=== PATIENT | female | born 1945 | race Caucasian/White ===

== ENCOUNTER 2016-04-12 06:24 | Observation (INO) | payer MEDICARE ==
[2016-04-12 08:13] LABS: Hematocrit 38 % (35-47); Hemoglobin 12.7 g/dl (12.0-16.0); Mean Corpuscular HGB Conc 34 g/dl (31-36); Mean Corpuscular Hemoglobin 30 pg (27-31); Mean Corpuscular Volume 89 fL (80-97); Mean Platelet Volume 7 um3 (7.4-10.4); Red Blood Count 4.24 10^6/ul (4.0-5.4); Red Cell Distribution Width 13 % (10.5-15); White Blood Count 12.1 10^3/ul (3.5-10.8)
[2016-04-12 08:26] LABS: Albumin 3.8 g/dL (3.2-5.2); C Reactive Protein 31.63 mg/L (< 5.00); Calcium 9.2 mg/dL (8.6-10.3); EGFR African American 80.6 (>60); EGFR Non-African American 62.7 (>60); Globulin 4.1 g/dL (2-4); Magnesium 1.9 mg/dL (1.9-2.7); Potassium 4.2 mmol/L (3.5-5.0); Total Bilirubin 0.6 mg/dL (0.2-1.0); Total Protein 7.9 g/dL (6.4-8.9)
[2016-04-12 10:34] LABS: Budding Yeast Present (Absent); Urine Bacteria Absent (Absent); Urine Bilirubin Negative (Negative); Urine Glucose Negative (Negative); Urine Nitrite Negative (Negative)
[2016-04-12] MEDS ORDERED: Iohexol 300* (CONTRAST) 10 ML SDV IV ONE (10:49)
--- NOTE | 2016-04-12 11:40 | RAD ---
INDICATION: Left lower quadrant abdominal pain. COMPARISON: Comparison is made with a prior CT of the abdomen and pelvis from June 19, 2015 and a study from April 28, 2014. TECHNIQUE: A CT scan of the abdomen and pelvis was performed with intravenous and oral contrast following intravenous injection of 121 ml of Omnipaque 300 nonionic contrast. Contiguous axial sections were obtained from the lung bases through the symphysis pubis. Images were reconstructed in the coronal and sagittal planes. FINDINGS: There is mild dependent bilateral lower lobe subsegmental atelectasis. No pleural effusion is present. The liver is mildly enlarged and unchanged from the prior exam. No significant focal hepatic abnormality is seen. The patient is status post cholecystectomy. The spleen is normal in size. There is focal fatty infiltration in the pancreatic head and neck which is unchanged. The kidneys and adrenal glands are normal in size. No hydronephrosis is seen. There is a 2.5 cm cyst present in the midportion of the right kidney. The aorta is normal in caliber and demonstrates homogeneous contrast opacification. No significant enlarged retroperitoneal lymph nodes are seen. The stomach, small and large bowel appear nondistended. The appendix is within normal limits. There is moderate descending and sigmoid diverticulosis. In addition there is mild thickening of the wall of the proximal sigmoid colon with adjacent stranding in the mesenteric fat. These findings are nonspecific although would be suggestive of diverticulitis. No abscess is seen. The uterus is anteverted and normal in size. There is a soft tissue density mass in the left adnexal region measuring 4.4 x 2.9 cm in size which is unchanged from the prior studies. There is a trace amount of free intraperitoneal fluid in the pelvis. No free intraperitoneal air is seen. No significant focal osseous abnormality is seen. IMPRESSION: 1. MILD THICKENING OF THE WALL OF THE SIGMOID COLON WITH STRANDING IN THE ADJACENT MESENTERIC FAT NONSPECIFIC ALTHOUGH SUSPICIOUS FOR DIVERTICULITIS. WHEN THE PATIENT'S ACUTE PROCESS RESOLVES RECOMMEND A COLONOSCOPY FOR FURTHER EVALUATION. 2. SOFT TISSUE DENSITY MASS IN THE LEFT ADNEXAL REGION UNCHANGED FROM THE PRIOR STUDIES. 3. STATUS POST CHOLECYSTECTOMY.
[2016-04-12] MEDS ORDERED: Ciprofloxacin 400MG IVPREMIX(* 400 MG/200 ML BAG IVPB ONE (11:57)
[2016-04-12] MEDS ORDERED: metroNIDAZOLE IV 500 MG/100ML* 500 MG/100 ML BAG IVPB ONE (11:58)
[2016-04-12] MEDS ORDERED: Ondansetron INJ* 2 MG/ML VIAL IV PRN (12:50)
[2016-04-12] MEDS ORDERED: Acetaminophen TAB* 325 MG PO PRN (12:50)
[2016-04-12] MEDS ORDERED: NS 0.9% 1000 ML* 1,000 ML IV ONE (12:50)
[2016-04-12] MEDS ORDERED: NS 0.9% 1000 ML* 1,000 ML IV SCH (13:00)
[2016-04-12] MEDS: metroNIDAZOLE IV 500 MG/100ML* 500 MG/100 ML BAG IVPB SCH ×2 (14:06→21:28)
[2016-04-12] MEDS: amLODIPine TAB* 5 MG PO SCH (14:14)
[2016-04-12] MEDS: Metoprolol Tartrate TAB* 100 MG TAB PO SCH (14:15)
[2016-04-12] MEDS: Lisinopril TAB* 10 MG PO SCH (14:15)
[2016-04-12] MEDS: Heparin VIAL(*) 5000 UNITS/ML VIAL (FIVE THOUSAND) SUBCUT SCH ×2 (14:22→21:28)
[2016-04-12] MEDS: Ciprofloxacin 400MG IVPREMIX(* 400 MG/200 ML BAG IVPB SCH (15:04)
--- NOTE | 2016-04-12 16:07 | ED ---
Bennie Celis Adam, scribed for Ray Salinas MD on 04/12/16 at 0814 . Abdominal Pain/Female - HPI Summary HPI Summary: A 71 y/o female presents to the ED c/o diffuse lower abdominal pain that started last night around 2100. Currently she has no abdominal pain. However, this morning, patient had an episode of near syncope with diaphoresis, weakness , and lightheadedness. She denies SILVA, nausea, diarrhea, CP, SOB, black or bloody stool, or neurological deficits. Her chronic lower extremity edema is unchanged. Patient has not had anything to eat this morning, and has a hx of diverticulitis. She denies any alcohol, tobacco, or substance use. FHx is negative for cardiac disease. - History of Current Complaint Chief Complaint: EDAbdPain Stated Complaint: DIZZY/WEAK/CLAMMY Time Seen by Provider: 04/12/16 07:32 Hx Obtained From: Patient, Family/Mounter Clarinets - Onset/Duration: Sudden Onset Timing: Intermittent Episode Lasting Severity Initially: Moderate Severity Currently: None Pain Intensity: 0 Pain Scale Used: 0-10 Numeric Location: Diffuse - Lower abdominal Aggravating Factor(s): Movement - Position change Alleviating Factor(s): Position - Supine position Associated Signs and Symptoms: Positive: Diaphoresis, Dizzy, Other: - Weakness. Negative: Blood in Stool, Nausea Allergies/Adverse Reactions: Allergies Allergy/AdvReac Type Severity Reaction Status Date / Time Amoxicillin Allergy Rash Verified 04/12/16 07:28 Penicillins Allergy Rash Verified 04/12/16 07:28 Home Medications: Home Medications amLODIPine TAB* [Norvasc TAB*] 2.5 mg PO DAILY 04/12/16 [History Confirmed 04/12] PMH/Surg Hx/FS Hx/Imm Hx Endocrine/Hematology History: Denies: Hx Diabetes Cardiovascular History: Reports: Hx Hypertension - CONTROL WITH MEDS Denies: Hx Congestive Heart Failure GI History: Reports: Other GI Disorders - Hx diverticulitis History: Denies: Hx Renal Disease Musculoskeletal History: Reports: Hx Arthritis - 2ND TOE ON LEFT FOOT Sensory History: Reports: Hx Contacts or Glasses - GLASSES Denies: Hx Hearing Aid Opthamlomology History: Reports: Hx Contacts or Glasses - GLASSES Neurological History: Denies: Other Neuro Impairments/Disorders - DENIES - Surgical History Surgery Procedure, Year, and Place: 1972 BILATERAL TUBAL LIGATION, [place]. 1989 [place]IL[place] CURETTAGE, [place] Hx Anesthesia Reactions: Yes - D&C - VOMITING Infectious Disease History: No Infectious Disease History: Denies: Traveled Outside the [place] in Last 30 Days - Family History Known Family History: Negative: Cardiac Disease - Social History Alcohol Use: None Hx Substance Use: No Substance Use Type: Reports: None Hx Tobacco Use: No Smoking Status (MU): Never Smoked Tobacco Review of Systems Positive: Skin Diaphoresis Eyes: Negative Negative: Erythema ENT: Negative Negative: Sore Throat Cardiovascular: Negative Negative: Chest Pain Respiratory: Negative Negative: Shortness Of Breath, Cough Positive: Abdominal Pain. Negative: Vomiting, Nausea Genitourinary: Negative Negative: dysuria, hematuria Positive: Edema - chronic - unchanged Skin: Negative Negative: Rash Neurological: Other - Negative: Dizziness Positive: Weakness Psychological: Normal All Other Systems Reviewed And Are Negative: Yes Physical Exam - Summary Physical Exam Summary: Constitutional: Well-developed, Well-nourished, Alert. (-) Distressed Skin: Warm, Dry HENT: Normocephalic; Atraumatic Eyes: Conjunctiva normal Neck: Musculoskeletal ROM normal neck. (-) JVD, (-) Stridor, (-) Tracheal deviation Cardio: Rhythm regular, rate normal, Heart sounds normal; Intact distal pulses; The pedal pulses are 2+ and symmetric. Radial pulses are 2+ and symmetric. (-) Murmur Pulmonary/Chest wall: Effort normal. (-) Respiratory distress, (-) Wheezes, (-) Rales Abd: Soft, Tenderness at LLQ, (-) Distension, (-) Guarding, (-) Rebound Musculoskeletal: (-) Edema Lymph: (-) Cervical adenopathy Neuro: Alert, Oriented x3 Psych: Mood and affect Normal Vital Signs On Initial Exam: Initial Vitals Temp Pulse Resp BP Pulse Ox 97.7 F 70 16 154/64 98 04/12/16 06:52 04/12/16 06:52 04/12/16 06:52 04/12/16 06:52 04/12/16 06:52 Diagnostics - Vital Signs Vital Signs Temp Pulse Resp BP Pulse Ox 04/12/16 06:52 97.7 F 70 16 154/64 98 - Laboratory Result Diagrams: 04/12/16 07:52 04/12/16 07:52 Lab Statement: Any lab studies that have been ordered have been reviewed, and results considered in the medical decision making process. - CT Abdominal/pelvis CT Interpretation: Positive (See Comments) - 1. MILD THICKENING OF THE WALL OF THE SIGMOID COLON WITH STRANDING IN THE ADJACENT MESENTERIC FAT NONSPECIFIC ALTHOUGH SUSPICIOUS FOR DIVERTICULITIS. WHEN THE PATIENT'S ACUTE PROCESS RESOLVES RECOMMEND A COLONOSCOPY FOR FURTHER EVALUATION. 2. SOFT TISSUE DENSITY MASS IN THE LEFT ADNEXAL REGION UNCHANGED FROM THE PRIOR STUDIES. 3. STATUS POST CHOLECYSTECTOMY. CT Interpretation Completed By: Radiologist - EKG 06:45 Cardiac Rate: NL - 70 EKG Rhythm: Sinus Rhythm EKG Interpretation: New T-wave inversion in V2 and V3. No STEMI Re-Evaluation - Re-Evaluation First Eval Re-Evaluation Time: 12:09 Change: Unchanged Comment: Discussed lab and imaging with patient. Abdominal Pain Fem Course/Dx - Diagnoses Provider Diagnoses: Acute diverticulitis, EKG abnormality, Near syncope - Provider Notifications Discussed Care Of Patient With: Dr. Buchanan (Hospitalist, 12:10) - Agrees to see patient. Discharge - Discharge Plan Condition: Guarded Disposition: ADMITTED TO [facility] documentation as recorded by the Bennie nguyen Adam accurately reflects the service I personally performed and the decisions made by , Ray Salinas MD.
--- NOTE | 2016-04-12 17:13 | HP ---
HISTORY AND PHYSICAL: DATE OF ADMISSION: 04/12/16 PRIMARY CARE PROVIDER: [facility] in [place]. ATTENDING PHYSICIAN WHILE IN THE HOSPITAL: Dr. Mary Buchanan* (report being dictated by Zacarias Schmidt NP). CHIEF COMPLAINT: 1. Lightheadedness. 2. Presyncope. 3. Abdominal discomfort. HISTORY OF PRESENTING ILLNESS: Ms. Berumen is a 71-year-old female patient, who has a history of hypertension, obesity, urinary incontinence, and a history of diverticulitis diagnosed about a year ago. She comes in today, states that yesterday she started having lower abdominal discomfort and pain, stating that she was not feeling well and got progressively worse throughout the night, felt better this morning, but when she came to this morning and was getting up to go about her daily business, she started feeling very lightheaded, almost like she was going to faint. She denied sensation of the room spinning. She denied having any chest pain or denied having any shortness of breath or any nausea or vomiting. She says that the symptoms were not getting any better despite her sitting down, so she decided to come into the ER to be evaluated. She denies currently any more dizziness. She says she is still having lower abdominal discomfort, described as a sharp stabbing pain, similar to her previous diverticulitis episodes. She came into the ER, it was found that she had a subtle EKG change, she had inverted T waves now in V3, which was new, they were negative in the past and because of the presyncopal episode and the fact that she had what appeared on CAT scan mild diverticulitis, we were asked to evaluate for admission. PAST MEDICAL HISTORY: Significant for: 1. Hypertension. 2. Obesity. 3. Urinary incontinence. 4. Diverticulitis. PAST SURGICAL HISTORY: She has had a laparoscopic cholecystectomy. MEDICATIONS: Home meds include: 1. Amlodipine 2.5 mg daily. 2. Multivitamin 1 tablet daily. 3. Metoprolol 50 mg at bedtime and 100 mg in the morning. 4. Lisinopril 40 mg daily. ALLERGIES TO MEDICATIONS: Include AMOXICILLIN and PENICILLIN. FAMILY HISTORY: Her father had a history of colon cancer. SOCIAL HISTORY: She does not smoke. She does not drink. She is , with children. Surrogate decision maker is her . REVIEW OF SYSTEMS: There is no documented fever. She denied having any significant weight change. There was no double vision. There is no ear discharge. There is no rhinorrhea. No sore throat. No thyroid enlargement. Denies having any chest discomfort. There is no dyspnea on exertion. No orthopnea, no nocturnal dyspnea. There is abdominal pain per my HPI. There is no nausea, no vomiting. No dysuria, no frequency. No seizure, no loss of consciousness. No pruritus and no skin ulcerations. Review of 14 systems completed, all others negative. PHYSICAL EXAMINATION GENERAL: At this time, Ms. Berumen is a 71-year-old female patient who appears to be well-nourished, well-developed. She does not appear to be in any acute distress. She is sitting in the ER stretcher. VITAL SIGNS: Reveal blood pressure 142/61 with a pulse of 79, respirations 14, O2 sat 96%, temperature 97.7. HEENT: Head is atraumatic and normocephalic. Eyes: EOMs are intact. Sclerae anicteric and not pale. Throat: Oral mucosa appears to be moist. No oropharyngeal erythema. NECK: Supple. LUNGS: Clear to auscultation bilaterally. No wheezes, rales, or rhonchi. HEART: Sounds S1, S2. Regular rate and rhythm. No murmurs, rubs, or gallops. ABDOMEN: Soft, flat. There was tenderness in the left lower and suprapubic area. Bowel sounds were present. EXTREMITIES: Pulses were 2+ throughout. She is able to move all 4 extremities with 5/5 strength. NEUROLOGIC: The patient is awake, she is alert, she is oriented x3. Tongue midline. Abstract Clerk were equal. No gross focal deficits. SKIN: Grossly intact. DIAGNOSTIC STUDIES/LAB DATA: Today revealed WBC of 12.1, RBC of 4.24, hemoglobin 12.7, hematocrit of 38, and platelet count of 274. Sodium 134, potassium 4.2, chloride 99, bicarb 27, BUN 16, creatinine 0.89, glucose 130, lactate 1.1, calcium 9.2, mag 1.9. Total bili 0.6, AST 22, ALT 20, alk phos 59. Troponin 0. Albumin of 3.8. Lipase is 22. Urine showed 3+ leukocyte esterase, 3+ wbc's, present squamous transitional and renal epithelial cells, and present yeast. She did have an abdominal and pelvis CT scan obtained today, which revealed mild thickening of the wall of the sigmoid colon with stranding in the adjacent mesenteric fat, nonspecific, although suspicious for diverticulitis, I recommend a colonoscopy for further evaluation. Soft tissue density mass in the left axillary region, unchanged from prior studies, status post cholecystectomy. She did have an EKG obtained today, which again showed a subtle new T-wave inversion in lead III, she has been negative in the past. She had a rate of 70 , no ST elevations were noted. She had inversion in lead III, which has been there in the past and a rate of 70. Old medical records were reviewed. ASSESSMENT AND PLAN: Ms. Berumen is a 71-year-old female patient coming into the ER today with complaints of abdominal discomfort and an episode of presyncope. She will be admitted under observation status for: 1. Presyncope. I suspect this is probably vasovagal secondary to the pain she was having, but she does have a history of hypertension. I do think she warrants at least telemetry, orthostatics, and an echo. At this point, I will go ahead and repeat troponin. We will get an EKG in the morning. We will continue to monitor her and I am going to hydrate her. 2. Diverticulitis. We will go ahead and put her on Cipro and Flagyl and continue to follow. I will give her a liter of fluids. We will repeat her labs in the morning. 3. Hypertension. Continue meds as prescribed. 4. Obesity. Follow up with primary. 5. History of urinary incontinence. Follow up with primary. 6. History of family colon cancer. Now with an episode of diverticulitis, I did recommend the patient that she needs a colonoscopy. In addition to this, I am going to go ahead and try to get in touch with GI to see if we can get her set up with an outpatient appointment as I do think that she will need a colonoscopy because of a history of colon cancer in the past. In addition to this, also the history of diverticulitis, she needs to have some direct visualization to make sure there is not any suspicious lesion. I did discuss this with the patient the importance and she is in agreement. 7. Fluids, electrolytes, nutrition. She can have a heart-healthy diet. 8. Code status. Full code. TIME SPENT: On the admission was 70 minutes, greater than half the time spent face- to-face with the patient obtaining my history and physical, the other half the time was spent going over the plan of care with the patient and implementing plan of care. I did discuss the plan of care with my attending physician, Dr. Buchanan; she is in agreement. ZACARIAS SCHMIDT NP ADDENDUM TO HISTORY AND PHYSICAL: ADDENDUM: Ms. Berumen is a 71-year-old female who presents with a bout of recurrent diverticulitis. The patient also had an episode of near syncope today. She is going to be observed on telemetry monitored bed. For further details of the patient's evaluation and plan of treatment, please see history and physical dictated by Zacarias Schmidt NP, on 04/12/16, with which I agree. Mary Buchanan MD CC: [facility] in [place]* [id number]/[facility] #: [id number]/CPS #: [id number] MTDTerrell
--- NOTE | 2016-04-12 17:30 | HP ---
HISTORY AND PHYSICAL: ADDENDUM: Ms. Berumen is a 71-year-old female who presents with a bout of recurrent diverticulitis. The patient also had an episode of near syncope today. She is going to be observed on telemetry mo nitored bed. For further details of the patient's evaluation and plan of treatment, please see hist ory and physical dictated by Avinash Christopher NP, on 04/12/16, with which I agree. [id number]/[facility] #: [id number]
[2016-04-12] MEDS ORDERED: Metoprolol Tartrate TAB* 50 mg PO SCH (21:00)
--- NOTE | 2016-04-12 22:26 | CONS ---
CONSULTATION REPORT: DATE OF CONSULT: 04/12/16 REASON FOR CONSULT: Abdominal pain and CT evidence of acute diverticulitis. NARRATIVE: Ms. Berumen is a 71-year-old woman who has a history of hypertension. Additionally about a year ago, she states that she was diagnosed and treated and hospitalized for diverticulitis. On the day of admission, she developed a lower abdominal pain that became progressively worse. She had a near syncopal episode and presented to the emergency room with these symptoms. She had some mild EKG changes and a CT scan of the abdomen was performed which I did review showing relatively mild thickening of the sigmoid colon consistent with diverticulitis. There was no abscess. The patient was admitted and placed on IV antibiotics. Again, she states that about a year ago, she had a similar episode and was on antibiotics. She responded and was instructed to be on a low fiber diet. She has been well in the last year. She has never had a colonoscopy. PAST MEDICAL HISTORY: Her past medical history does include hypertension and a prior history of diverticulitis. Her only surgical history was a cholecystectomy. MEDICATIONS: Her medicines at home were: 1. Amlodipine. 2. Metoprolol. 3. Lisinopril. FAMILY HISTORY: Notable for father who had colon cancer in his 80s. There is no other family history of GI malignancies. REVIEW OF SYSTEMS: She denies any bowel irregularities, GI bleeding. She believes she gets stool Hemoccult performed and has been told they were negative. She has had no dysphagia, nausea, or vomiting. PHYSICAL EXAM: On exam, she is a woman, in no acute distress. She is not pale. Temperature is 98.2, blood pressure is 160/72, heart rate is 75 and regular. Lungs are clear. Cardiac exam reveals a regular rhythm without murmur. Abdomen is without distention and there is perhaps minimal tenderness in the left lower quadrant. There is no mass or rebound. Bowel sounds normoactive. DIAGNOSTIC STUDIES/LAB DATA: Additional data include a white count of 12.1, hemoglobin of 12.7. C-reactive protein of 31.63. Normal liver panel. IMPRESSION: A 71-year-old woman presenting with a clinical presentation most consistent with acute diverticulitis. Imaging supports this and it does seem like that this is her second episode. We discussed treatment including antibiotics and I stressed to her that during treatment, a low-residue diet is recommended, but after treatment, a high-fiber diet may be associated with a reduced recurrence and that was discussed including trying a fiber supplement or increasing fiber in her diet. I also stressed the importance of colonoscopy particularly given her family history of colon cancer. I discussed that procedure with her in great detail including the preparation phase. She was encouraged to contact our office to arrange that at some time in the near future. CC: [facility], [place], [place]* [id number]/[facility] #: [id number] BARI
[2016-04-13] MEDS: Ciprofloxacin 400MG IVPREMIX(* 400 MG/200 ML BAG IVPB SCH (00:45)
[2016-04-13] MEDS: metroNIDAZOLE IV 500 MG/100ML* 500 MG/100 ML BAG IVPB SCH ×2 (04:40→13:35)
[2016-04-13 05:15] LABS: Hematocrit 34 % (35-47); Hemoglobin 11.6 g/dl (12.0-16.0); Mean Corpuscular HGB Conc 34 g/dl (31-36); Mean Corpuscular Hemoglobin 30 pg (27-31); Mean Corpuscular Volume 89 fL (80-97); Mean Platelet Volume 7 um3 (7.4-10.4); Red Blood Count 3.85 10^6/ul (4.0-5.4); Red Cell Distribution Width 13 % (10.5-15); White Blood Count 6.3 10^3/ul (3.5-10.8)
[2016-04-13 05:31] LABS: BUN/Creatinine Ratio 14.6 (8-20); Calcium 8.6 mg/dL (8.6-10.3); EGFR African American 88.6 (>60); EGFR Non-African American 68.9 (>60); Potassium 3.7 mmol/L (3.5-5.0)
[2016-04-13] MEDS: Heparin VIAL(*) 5000 UNITS/ML VIAL (FIVE THOUSAND) SUBCUT SCH (05:55)
[2016-04-13] MEDS: Lisinopril TAB* 10 MG PO SCH (08:58)
[2016-04-13] MEDS: Metoprolol Tartrate TAB* 100 MG TAB PO SCH (08:58)
[2016-04-13] MEDS: amLODIPine TAB* 5 MG PO SCH (08:58)
--- NOTE | 2016-04-13 10:47 | ECHO ---
Patient: SAMANTA ROTH [facility] Rec#: [id number] : 1945 Date: 04/13/2016 Age: 71y Height: 165.1 cm / 65.0 in Weight: 88.9 kg / 195.9 lbs Sex: F BSA: 1.96 Room#: 452 Admit Date#: 04/12/2016 Referring: Avinash Christopher NP Reading: Kyler Lowe MD Shuttle Route Vehicle Operator: Meagan Adams [facility] Transthoracic Echocardiogram Indication: Syncope/Abn EKG BP: 150/75 HR: 76 Rhythm: NSR Findings History: HTN,obesity,subtle EKG changes. Technical Comments: The study quality is good. Completed at 0813. Left Ventricle: Mild to moderate concentric left ventricular hypertrophy is observed. Global left ventricular wall motion and contractility are within normal limits. There is normal left ventricular systolic function. The estimated ejection fraction is 55-60%. Normal left ventricular diastolic filling is observed. Left Atrium: The left atrium is mildly dilated. Right Ventricle: The right ventricular cavity size is normal. The right ventricular global systolic function is normal. Right Atrium: The right atrial cavity size is normal. Aortic Valve: The aortic valve is trileaflet. There is no evidence of aortic regurgitation. There is no evidence of aortic stenosis. Mitral Valve: The mitral valve leaflets are moderately thickened. There is mild to moderate mitral regurgitation. There is no evidence of mitral stenosis. Tricuspid Valve: The tricuspid valve leaflets are normal. There is mild tricuspid regurgitation. The right ventricular systolic pressure is estimated at 51 mmHg. There is evidence of moderate pulmonary hypertension. There is no tricuspid stenosis. Pulmonic Valve: The pulmonic valve appears normal. There is trace to mild pulmonic regurgitation. There is no pulmonic stenosis. Pericardium: There is no pericardial effusion. Aorta: There is no dilatation of the ascending aorta. There is no dilatation of the aortic arch. There is no dilation of the aortic root. Pulmonary Artery: The main pulmonary artery appears normal. Venous: The inferior vena cava appears normal in size. There is a greater than 50% respiratory change in the inferior vena cava dimension. Conclusions Mild to moderate concentric left ventricular hypertrophy is observed. The left atrium is mildly dilated. There is mild to moderate mitral regurgitation. There is mild tricuspid regurgitation. There is evidence of moderate pulmonary hypertension. There is trace to mild pulmonic regurgitation. No reports of prior studies offered for comparison. Measurements Name Value Normal Range RVIDd (AP) 2D 2.8 cm (0.9 - 2.6) RVDdMajor (2D) 3.3 cm (2.2 - 4.4) RAd ISD 4CH 4.3 cm (3.4 - 4.9) RA (A4C)W 3.3 cm (2.9 - 4.6) IVSd (2D) 1.3 cm (0.6 - 1) LVPWd (2D) 1.1 cm (0.6 - 1) LVIDd (2D) 4.3 cm (3.6 - 5.4) LVIDs (2D) 3.1 cm - LV FS (2D) 28 % (25 - 45) Aortic Annulus 1.6 cm (1.4 - 2.6) Ao root diameter (2D) 2.6 cm (2.1 - 3.5) Ascending Ao 3.2 cm (2.1 - 3.4) Aortic arch 2.5 cm (1.8 - 3.4) LA dimension (AP) 2D 4.3 cm (2.3 - 3.8) LAd ISD 4CH 5.5 cm (2.9 - 5.3) LA ISD 4CH W 4.1 cm (2.5 - 4.5) Name Value Normal Range LA ESV SP 4CH (A/L) 68 ml - LA ESV SP 2CH (A/L) 58 ml - LA ESV BP (A/L) 67 ml - LA ESV BP (A/L) index 34.17 ml/m2 - LA ESV SP 4CH (MOD) 64 ml - LA ESV SP 2CH (MOD) 54 ml - Name Value Normal Range MV E-wave Vmax 1.1 m/sec - MV deceleration time 188 msec - MV A-wave Vmax 1 m/sec - MV E:A ratio 1.16 ratio - LV septal e' Vmax 0.09 m/sec - LV lateral e' Vmax 0.07 m/sec - LV E:e' septal ratio 12.22 ratio - LV E:e' lateral ratio 15.71 ratio - Name Value Normal Range AV Vmax 1.9 m/sec - AV VTI 46 cm - AV peak gradient 14.82 mmHg - AV mean gradient 7.93 mmHg - LVOT Vmax 1.2 m/sec - LVOT VTI 28.2 cm - LVOT peak gradient 6.25 mmHg - LVOT mean gradient 2.77 mmHg - Name Value Normal Range TR Vmax 3.5 m/sec - TR peak gradient 48 mmHg - RAP 3 mmHg - RVSP 51 mmHg - IVC diameter 1.7 cm - Name Value Normal Range PV Vmax 0.6 m/sec - PV peak gradient 1.5 mmHg -
--- NOTE | 2016-04-13 13:57 | PN ---
Subjective Date of Service: 04/13/16 Interval History: Patient seen and examined at bedside. Pt denies fever, chills, shortness of breath, chest discomfort, abdominal pain, N/V/D. Pt has been up ambulating and denies lightheadedness or dizziness. Tele: Sinus Rhythm, rate 60-70's. Family History: Unchanged from Admission Social History: Unchanged from Admission Past Medical History: Unchanged from Admission Objective Active Medications: Acetaminophen (Tylenol Tab*) 650 mg PO Q4H PRN Reason: FEVER/PAIN Amlodipine Besylate (Norvasc Tab*) 2.5 mg PO DAILY SHELIA Heparin Sodium (Porcine) (Heparin Vial(*)) 5,000 units SUBCUT Q8HR SHELIA Ciprofloxacin/Dextrose (Cipro 400 Mg Ivpremix(*)) 400 mg in 200 mls @ 200 mls/ hr IVPB Q12H SHELIA Sodium Chloride (Ns 0.9% 1000 Ml*) 1,000 mls @ 100 mls/hr IV PER RATE SHELIA Metronidazole/Sodium Chloride (Flagyl 500 Mg Ivpb*) 500 mg in 100 mls @ 100 mls /hr IVPB Q8H SHELIA Lisinopril (Prinivil Tab*) 40 mg PO QAM SHELIA Metoprolol Tartrate (Lopressor Tab*) 100 mg PO QAM SHELIA Metoprolol Tartrate (Lopressor Tab*) 50 mg PO BEDTIME SHELIA Ondansetron HCl (Zofran Inj*) 4 mg IV Q6H PRN Reason: NAUSEA Vital Signs 04/12/16 04/12/16 04/12/16 15:27 19:43 20:27 Temperature 97.3 F 97.2 F Pulse Rate 70 66 71 Respiratory 20 16 Rate Blood Pressure 157/75 142/65 152/72 (mmHg) O2 Sat by Pulse 99 98 100 Oximetry 04/12/16 04/13/16 04/13/16 20:34 00:00 01:05 Temperature 98.0 F Pulse Rate 72 89 Respiratory 20 Rate Blood Pressure 148/68 138/53 (mmHg) O2 Sat by Pulse 96 96 Oximetry 04/13/16 04/13/16 04/13/16 03:46 07:52 08:59 Temperature 98.0 F 98.3 F Pulse Rate 70 74 Respiratory 20 18 20 Rate Blood Pressure 150/75 152/86 (mmHg) O2 Sat by Pulse 92 98 Oximetry Oxygen Devices in Use Now: None Appearance: NAD, sitting up in bed. Eyes: No Scleral Icterus, PERRLA Ears/Nose/Mouth/Throat: NL Teeth, Lips, Gums, Mucous Membranes Moist Neck: NL Appearance and Movements; NL JVP, Trachea Midline Respiratory: Symmetrical Chest Expansion and Respiratory Effort, Clear to Auscultation Cardiovascular: NL Sounds; No Murmurs; No JVD, RRR Abdominal: NL Sounds; No Tenderness; No Distention - Bowel sounds present. Skin: No Rash or Ulcers Neurological: Alert and Oriented x 3, NL Muscle Strength and Tone Lines/Tubes/Other Access: Clean, Dry and Intact Peripheral IV - site benign. Nutrition: Taking PO's Result Diagrams: 04/13/16 05:07 04/13/16 05:07 Assess/Plan/Problems-Billing Assessment: Ms. Berumen is a 71 yo female with PMH significant for HTN,obesity, urinary incontinence who presented to the emergency room with complaints of abdominal pain and an episode of presyncope. - Patient Problems (1) Pre-syncope Comment: No further episodes of lightheadedness. Pt states that she has been able to ambulate around without diffiuclty. No arrythmias noted on tele. She is not orthostatic. Echo shows mild to moderate concentric left ventricular hypertrophy, and moderate pulmonary HTN. (2) Diverticulitis Comment: ABD pain has resolved. Will continue Pt on Cipro and Flagyl. Pt encouraged to be on a low residue diet and advance to a high fiber diet once she has completed treatment. Pt should also have a colonoscopy outpatient. (3) HTN (hypertension) Code(s): I10 - ESSENTIAL (PRIMARY) HYPERTENSION SNOMED Code(s): 72565961 Comment: BP controlled. Continue home medications. (4) DVT prophylaxis Code(s): JMP1225 - SNOMED Code(s): 901039466 (5) Full code status Code(s): Z78.9 - OTHER SPECIFIED HEALTH STATUS SNOMED Code(s): 642519114 Status and Disposition: OBV. Stable for discharge to home today.
[2016-04-13 14:15] VITALS: BP 143/67
--- NOTE | 2016-04-14 17:52 | DS ---
DISCHARGE SUMMARY: DATE OF ADMISSION: 04/12/16 DATE OF DISCHARGE: 04/13/16 ATTENDING PHYSICIAN: Dr. Heena Spring *(dictated by Sharon Page NP). PRIMARY CARE PROVIDER: [facility] in [place]. PRIMARY DIAGNOSES: 1. Presyncope, suspect secondary to vasovagal. 2. Diverticulitis. SECONDARY DIAGNOSES: 1. Hypertension. 2. Obesity. 3. Family history of colon cancer. CONSULTATIONS WHILE IN THE HOSPITAL: Dr. Gibran Beth, Gastroenterology. STUDIES WHILE IN THE HOSPITAL: 1. Abdomen and pelvis CT on 04/12/16. Radiologist's impression: Mild thickening of the wall of the sigmoid colon with stranding in the adjacent mesenteric fat, nonspecific, although suspicious for diverticulitis. When the patient's acute process resolves, recommend a colonoscopy for further evaluation. Soft tissue density mass in the left adrenal region, unchanged from the prior studies, status post cholecystectomy. 2. Transthoracic echocardiogram from 04/13/16. Cupola Patcher Helper's impression: Mild- to-moderate concentric left ventricular hypertrophy is observed. The left atrium is mildly dilated. There is [id number] mitral regurgitation, mild tricuspid regurgitation, moderate pulmonary hypertension, [id number] pulmonic regurgitation. There are no reports of prior studies offered for comparison. DISCHARGE MEDICATIONS: New home medications: 1. Ciprofloxacin 500 mg oral twice daily for 10 days. 2. Metronidazole 500 mg oral 3 times daily. Continued home medications: 1. Metoprolol 100 mg oral every morning. 2. Lisinopril 40 mg oral daily. 3. Metoprolol tartrate 50 mg oral daily at bedtime. 4. Multivitamin 1 capsule oral daily. 5. Amlodipine 2.5 mg oral daily. HISTORY OF PRESENT ILLNESS/HOSPITAL COURSE: Ms. Berumen is a 71-year-old female with past medical history significant for hypertension, obesity and diverticulitis, who presents to the emergency room with complaints of lower abdominal discomfort and not feeling well and what the patient described as a presyncopal episode. The patient denied any shortness of breath, chest pain, nausea, vomiting. The patient also denied any sensations of room spinning. Based on these concerns, the patient presented to the emergency room for further evaluations of her symptoms. While in the emergency room, the patient was found to have subtle EKG changes and had an inverted T-wave in leads V3 that were new and had been negative in the past. The patient also had an abdominal CAT scan due to her complaint of abdominal pain that found finding suspicious for diverticulitis. The patient also had labs that were significant for slightly elevated white count of 12.1. The patient was seen in evaluation by the hospitalist for admission. While in the hospital, the patient was seen in consultation by Dr. Gibran Beth with Gastroenterology, who felt that the patient was most likely having an acute diverticulitis and that this appeared to be her second episode. She was started on Cipro and Flagyl IV. It was discussed with the patient the antibiotics that she should be on and the patient was encouraged to be on a low- residue diet. During treatment and after treatment, she should be on a high- fiber diet, as this has been shown to reduce recurrence of diverticulitis. The patient was also encouraged to get a colonoscopy due to her family history of colon cancer and to further evaluate her for diverticulitis. The patient was encouraged to contact [facility] to arrange for a colonoscopy in the future. During the patient's hospital stay, she had no further syncopal episodes. She had a transthoracic echocardiogram with no significant findings except for a moderate pulmonary hypertension. She was able to ambulate with no dizziness. The patient's abdominal pain resolved. The patient was doing well and tolerating a low-fat diet. Ms. Berumen is stable for discharge to home today. Vital signs are as follows: Temperature 97.6, heart rate 62, respiratory rate 16, O2 sat 99% on room air, blood pressure 143/67. DISCHARGE PLAN: Ms. Berumen will be discharged to home. Activity is as tolerated. She should be on a low-residue diet during her treatment and advance to a high- fiber diet after her treatment. The patient as far as her diverticulitis has been started on Cipro 500 mg oral twice daily and Flagyl 500 mg oral 3 times daily. The patient has been encouraged to follow up with Gastroenterology for a followup colonoscopy not only to evaluate for her diverticulitis, but also due to her family history of colon cancer. It is to note that on the patient's echocardiogram, she was found to have moderate pulmonary hypertension and this should be followed and have further workup as needed in the outpatient setting. The patient has an appointment with [facility] on April 17 at 2:15 p.m. The patient's activity is as tolerated. She has been encouraged not to drink alcohol while taking metronidazole. The patient should return to the emergency room for shortness of breath, chest discomfort, or increasing abdominal pain. This is a summarized report of a complex medical history and hospital stay. For further details, please see the entire medical record. Time for this discharge was 50 minutes, 25 minutes were spent [id number] with the patient and , discussing discharge plans and instructions. CONDITION ON DISCHARGE: Stable. Reviewed by ISREAL MONAE 04/21/16 1434 CC: [facility]* [id number]/CPS #: [id number] BARI
== END 2016-04-13 15:35 | disposition home or self-care (01) ==
LOC: ED 06:24 → MEDTELE 12:44
PROVIDERS: ADMIT Internal Medicine; ATTEND Hospitalist
DX: R55 Syncope and collapse (principal); K57.32 Diverticulitis of large intestine without perforation or abscess without bleeding; R10.30 Lower abdominal pain, unspecified; R42 Dizziness and giddiness; I10 Essential (primary) hypertension; E66.9 Obesity, unspecified; R32 Unspecified urinary incontinence; Z79.899 Other long term (current) drug therapy; Z88.0 Allergy status to penicillin
CPT/HCPCS: 36415; 74177; 80048; 80053; 81003; 81015; 83605; 83690; 83735; 84484; 85025; 85610; 86140; 87077; 87086; 93005; 93306; 96365; 96366; 96367; 99283; A9270-GY; G0378; J0744; J1644; J3490; Q9967

== ENCOUNTER 2017-09-02 22:08 | Emergency (ER) | payer MEDICARE ==
[2017-09-02] MEDS ORDERED: Morphine VIAL* 4 MG/ML VIAL (1 ml vial) IV ONE (22:51)
[2017-09-02] MEDS ORDERED: Ondansetron ODT TAB* 4 MG SL ONE (22:52)
[2017-09-03 01:11] VITALS: BP 157/77
--- NOTE | 2017-09-03 03:05 | ED ---
Liliana Celis Julia, scribed for Miladys Castle MD on 09/02/17 at 2252 . Upper Extremity Pain - HPI Summary HPI Summary: This patient is a 72 year old F BIBA to [facility] accompanied by her with a chief complaint of R shoulder pain at 13:00 today. She denies injury to the shoulder. Pain is 10/10 in severity. Pain is aggravated by movement. No other complaints. - History of Current Complaint Chief Complaint: EDShoulderClavicleInj Stated Complaint: RIGHT SHOULDER PAIN Time Seen by Provider: 09/02/17 22:28 Hx Obtained From: Patient Mechanism Of Injury: Other - none Onset/Duration: Started Hours Ago Pain Location: Shoulder - right Aggravating Factor(s): Movement Alleviating Factor(s): Nothing Associated Signs & Symptoms: Positive: Negative - Allergies/Home Medications Allergies/Adverse Reactions: Allergies Allergy/AdvReac Type Severity Reaction Status Date / Time amoxicillin Allergy Rash Verified 09/02/17 23:00 Penicillins Allergy Rash Verified 09/02/17 23:00 Home Medications: Home Medications Atorvastatin* [Lipitor 40 MG*] 40 mg PO DAILY 09/02/17 [History Confirmed ] PMH/Surg Hx/FS Hx/Imm Hx Endocrine/Hematology History: Denies: Hx Diabetes Cardiovascular History: Reports: Hx Hypertension - CONTROL WITH MEDS Denies: Hx Congestive Heart Failure GI History: Reports: Other GI Disorders - Hx diverticulitis History: Denies: Hx Renal Disease Musculoskeletal History: Reports: Hx Arthritis - 2ND TOE ON LEFT FOOT Sensory History: Reports: Hx Contacts or Glasses - GLASSES Denies: Hx Hearing Aid Opthamlomology History: Reports: Hx Contacts or Glasses - GLASSES Neurological History: Denies: Other Neuro Impairments/Disorders - DENIES - Surgical History Surgery Procedure, Year, and Place: 1972 BILATERAL TUBAL LIGATION, [place]. 1989 [place]IL[place] AND [place]TTAGE, [place] Hx Anesthesia Reactions: Yes - D&C - VOMITING - Immunization History Date of Tetanus Vaccine: unable to recall Date of Influenza Vaccine: pt declines Infectious Disease History: No Infectious Disease History: Denies: Traveled Outside the [place] in Last 30 Days - Family History Known Family History: Negative: Cardiac Disease - Social History Alcohol Use: None Hx Substance Use: No Substance Use Type: Reports: None Hx Tobacco Use: No Smoking Status (MU): Never Smoked Tobacco Review of Systems Constitutional: Negative Positive: Arthralgia - R shoulder pain All Other Systems Reviewed And Are Negative: Yes Physical Exam - Summary Physical Exam Summary: VITAL SIGNS: Reviewed. GENERAL: Patient is a well-developed and nourished female who is lying comfortable in the stretcher. Patient is not in any acute respiratory distress. HEAD AND FACE: No signs of trauma. No ecchymosis, hematomas or skull depressions. No sinus tenderness. EYES: PERRLA, EOMI x 2, No injected conjunctiva, no nystagmus. EARS: Hearing grossly intact. Ear canals and tympanic membranes are within normal limits. MOUTH: Oropharynx within normal limits. NECK: Supple, trachea is midline, no adenopathy, no JVD, no carotid bruit, no c- spine tenderness, neck with full ROM. CHEST: Symmetric, no tenderness at palpation LUNGS: Clear to auscultation bilaterally. No wheezing or crackles. CVS: Regular rate and rhythm, S1 and S2 present, no murmurs or gallops appreciated. ABDOMEN: Soft, non-tender. No signs of distention. No rebound no guarding, and no masses palpated. Bowel sounds are normal. EXTREMITIES: no edema, no cyanosis or clubbing. Tenderness of R shoulder with decreased ROM due to pain, R arm is neurovascularly intact NEURO: Alert and oriented x 3. No acute neurological deficits. Speech is normal and follows commands. SKIN: Dry and warm Triage Information Reviewed: Yes Vital Signs On Initial Exam: Initial Vitals Temp Pulse Resp BP Pulse Ox 97.4 F 70 20 180/65 97 09/02/17 22:10 09/02/17 22:10 09/02/17 22:10 09/02/17 22:10 09/02/17 22:10 Vital Signs Reviewed: Yes Diagnostics - Vital Signs Vital Signs Temp Pulse Resp BP Pulse Ox 09/02/17 22:10 97.4 F 70 20 180/65 97 - Laboratory Lab Statement: Any lab studies that have been ordered have been reviewed, and results considered in the medical decision making process. - Radiology R Shoulder XR Radiology Interpretation Completed By: Radiologist - RADHA separation - EKG 2223 Cardiac Rate: NL EKG Rhythm: Sinus Rhythm - 70 BPM EKG Interpretation: Normal axis. Normal interval. No ischemic changes Course/Dx - Course Course Of Treatment: 72 year old F BIBA to [facility] accompanied by her with a chief complaint of R shoulder pain at 13:00 today. She denies injury to the shoulder. Pain is 10/10 in severity. Pain is aggravated by movement. No other complaints at this time. EKG is negative. CXR reveals a R AC separation. Patient is informed of results. Patient will be dsicharged with a prescription for Percocet and will follow up with orthopedics. Patient is agreeable with this plan. - Diagnoses Provider Diagnoses: AC separation Discharge - Sign-Out/Discharge Documenting (check all that apply): Discharge/Admit/Transfer - Discharge Plan Condition: Stable Disposition: HOME Prescriptions: oxyCODONE/Acetamin 5/325 MG* [Percocet 5/325 TAB*] 1 tab PO Q6H PRN #14 tab MDD 4 PRN Reason: Pain Patient Education Materials: Acromioclavicular Separation (ED) Referrals: ANNA Gómez [Primary Care Provider] - Arnie Veloz MD [Medical Doctor] - 1 Day (Follow up with orthopedics tomorrow, 09/04/17) Additional Instructions: RETURN TO EMERGENCY DEPARTMENT FOR ANY NEW OR WORSENING SYMPTOMS The documentation as recorded by the Liliana nguyen Julia accurately reflects the service I personally performed and the decisions made by me, Miladys Castle MD.
--- NOTE | 2017-09-03 07:51 | RAD ---
HISTORY: Right shoulder pain COMPARISONS: None VIEWS: 5, Frontal internal rotation, external rotation, outlet, and axillary views of the right shoulder FINDINGS: BONE DENSITY: Normal. BONES: There is no displaced fracture. JOINTS: There is osteoarthritis of the AC joint. There is mild osteoarthritis of the glenohumeral joint. ALIGNMENT: There is no dislocation. The acromioclavicular and coracoclavicular intervals are within normal limits. SOFT TISSUES: Unremarkable. OTHER FINDINGS: None. IMPRESSION: OSTEOARTHRITIS. NO ACUTE OSSEOUS INJURY. IF SYMPTOMS PERSIST, RECOMMEND REPEAT IMAGING.
== END 2017-09-03 01:09 | disposition home or self-care (01) ==
LOC: ED 22:08
DX: S43.101A Unspecified dislocation of right acromioclavicular joint, initial encounter (principal); X58.XXXA Exposure to other specified factors, initial encounter; Y93.9 Activity, unspecified; Y92.9 Unspecified place or not applicable; M19.011 Primary osteoarthritis, right shoulder; I10 Essential (primary) hypertension; K57.92 Diverticulitis of intestine, part unspecified, without perforation or abscess without bleeding; M19.072 Primary osteoarthritis, left ankle and foot; Z88.0 Allergy status to penicillin
CPT/HCPCS: 93005; 96374; 99283; A9270-GY; J2270

== ENCOUNTER 2018-10-07 03:26 | Emergency (ER) | payer MEDICARE ==
--- NOTE | 2018-10-07 04:10 | ED ---
Syncope/Near Syncope - HPI Summary HPI Summary: This patient is a 73 year old F BIBA with a chief complaint of syncope at 0230 this morning. Patient woke up with leg cramps and sat on the edge of the bed. She felt dizzy. She then experienced a syncopal episode, of which she has no memory. found her on the floor and reports she was cold and clammy, breathing rapidly. She has had 4 syncopal episodes before. The patient rates the pain 0/10 in severity. Symptoms aggravated by nothing. Symptoms alleviated by nothing. Patient reports nausea. Patient denies palpitations, CP, abdominal pain, weakness, numbness. - History Of Current Complaint Chief Complaint: EDSyncope Time Seen by Provider: 10/07/18 03:57 Hx Obtained From: Patient, Family/Ruching Machine Operator - Onset/Duration: Sudden Onset, Resolved Context: Unwitnessed, Loss Of Consciousness Activity At Onset: Other - Sat up from supine position Aggravating Factor(s): Nothing Alleviating Factor(s): Nothing Associated Signs And Symptoms: Negative - palpitations, CP, abdominal pain, weakness, numbness, Other - Nausea Related History: Similar Episode/Dx as - 4x syncopal episodes - Allergies/Home Medications Allergies/Adverse Reactions: Allergies Allergy/AdvReac Type Severity Reaction Status Date / Time amoxicillin Allergy Rash Verified 10/07/18 03:40 Penicillins Allergy Rash Verified 10/07/18 03:40 PMH/Surg Hx/FS Hx/Imm Hx Endocrine/Hematology History: Denies: Hx Diabetes Cardiovascular History: Reports: Hx Hypertension - CONTROL WITH MEDS Denies: Hx Congestive Heart Failure GI History: Reports: Other GI Disorders - Hx diverticulitis History: Denies: Hx Renal Disease Musculoskeletal History: Reports: Hx Arthritis - 2ND TOE ON LEFT FOOT Sensory History: Reports: Hx Contacts or Glasses - GLASSES Denies: Hx Hearing Aid Opthamlomology History: Reports: Hx Contacts or Glasses - GLASSES Neurological History: Reports: Other Neuro Impairments/Disorders - 4x syncopal episodes before - Surgical History Surgery Procedure, Year, and Place: 1972 BILATERAL TUBAL LIGATION, [place]. 1989 [place] AND [place]URE[place]AGE, [place] Hx Anesthesia Reactions: Yes - D&C - VOMITING - Immunization History Date of Tetanus Vaccine: unable to recall Date of Influenza Vaccine: pt declines Infectious Disease History: No Infectious Disease History: Denies: Traveled Outside the [place] in Last 30 Days - Family History Known Family History: Negative: Cardiac Disease - Social History Alcohol Use: None Hx Substance Use: No Substance Use Type: Reports: None Hx Tobacco Use: No Smoking Status (MU): Never Smoked Tobacco Review of Systems Negative: Palpitations, Chest Pain Positive: Nausea Neurological: Other - Dizziness Negative: Weakness, Numbness All Other Systems Reviewed And Are Negative: Yes Physical Exam - Summary Physical Exam Summary: Appearance: Well appearing, no pain distress Skin: warm, dry, reflects adequate perfusion Head/face: normal Eyes: EOMI, NORRIS ENT: normal Neck: supple, non-tender Respiratory: CTA, breath sounds present Cardiovascular: RRR, pulses symmetrical Abdomen: non-tender, soft Musculoskeletal: normal, strength/ROM intact Neuro: normal, sensory motor intact, A&Ox3 GCS: 15 Triage Information Reviewed: Yes Vital Signs On Initial Exam: Initial Vitals Temp Pulse Resp BP Pulse Ox 96.8 F 70 18 144/70 98 10/07/18 03:30 10/07/18 03:30 10/07/18 03:30 10/07/18 03:30 10/07/18 03:30 Vital Signs Reviewed: Yes Diagnostics - Vital Signs Vital Signs Temp Pulse Resp BP Pulse Ox 10/07/18 03:30 96.8 F 70 18 144/70 98 - Laboratory Result Diagrams: 10/07/18 04:31 10/07/18 04:31 Lab Statement: Any lab studies that have been ordered have been reviewed, and results considered in the medical decision making process. - Radiology CXR Radiology Interpretation Completed By: ED Physician Summary of Radiographic Findings: No acute processes, pending official radiology report. - CT Brain CT Interpretation Completed By: Radiologist Summary of CT Findings: No acute intracranial abnormality. Dr. Russell has reviewed this radiology report. - EKG 0452 Cardiac Rate: NL - 65 BPM EKG Rhythm: Sinus Rhythm ST Segment: Normal Ectopy: None Summary of EKG Findings: NSR at 65 BPM, no acute changes. Re-Evaluation - Re-Evaluation First Eval Re-Evaluation Time: 05:34 Change: Improved Comment: Discussed results with patients. Patient reports feeling better. She will be discharged home with dx of syncope to be watched by her since she does not want to be admitted for observation. Patient understands and agrees with this plan. Course/Dx Course Of Treatment: This patient is a 73 year old F BIBA with a chief complaint of syncope at 0230 this morning. Blood work obtained. EKG revealed NSR at 65 BPM, no acute changes. CXR revealed no acute processes, pending official radiology report. Brain CT revealed no acute intracranial abnormalities. In the ED patient reports feeling better. She will be discharged home with dx of syncope to be watched by her since she does not want to be admitted for observation. Patient understands and agrees with this plan. - Diagnoses Provider Diagnoses: Syncope Discharge - Sign-Out/Discharge Documenting (check all that apply): Patient Departure - Discharge Patient Received Moderate/Deep Sedation with Procedure: No - Discharge Plan Condition: Stable Disposition: HOME Patient Education Materials: Syncope (ED) Referrals: Ruben Laird PA [Primary Care Provider] - As Soon As Possible Additional Instructions: Follow-up with your primary care provider PERRY. RETURN TO THE ER FOR WORSENING OR CHANGING SYMPTOMS. - Attestation Statements Document Initiated by Scribe: Yes Documenting Scribe: Tuan Martin Provider For Whom Robyn is Documenting (Include Credential): Emmanuel Russell MD Scribe Attestation: Tuan Celis, scribed for Emmanuel Russell MD on 10/07/18 at 0539. Status of Scribe Document: Ready
[2018-10-07 04:47] LABS: ABS Lymphocytes 1.3 10^3/ul (1.0-4.8); ABS Neutrophils 7.3 10^3/ul (1.5-7.7); Eosinophil % 0.5 %; Hematocrit 36 % (35-47); Hemoglobin 12.8 g/dL (12.0-16.0); Lymphocyte % 13.3 %; Mean Corpuscular HGB Conc 35 g/dL (31-36); Mean Corpuscular Hemoglobin 31 pg (27-31); Mean Corpuscular Volume 88 fL (80-97); Mean Platelet Volume 7.2 fL (7.4-10.4); Platelet Count 227 10^3/uL (150-450); Red Blood Count 4.12 10^6 /uL (3.70-4.87); Red Cell Distribution Width 14 % (10-15); White Blood Count 9.6 10^3/uL (3.5-10.8)
[2018-10-07 05:05] LABS: Albumin/Globulin Ratio 1.2 (1-3); BUN/Creatinine Ratio 20.7 (8-20); Calcium 9.3 mg/dL (8.6-10.3); EGFR African American 82.9 (>60); EGFR Non-African American 68.5 (>60); Globulin 3.4 g/dL (2-4); Potassium 3.8 mmol/L (3.5-5.0); Total Bilirubin 0.4 mg/dL (0.2-1.0); Total Protein 7.4 g/dL (6.4-8.9)
[2018-10-07 05:07] LABS: Activated Partial Thrombo Time 33.9 seconds (26.0-38.0); INR 0.97 (0.82-1.09)
[2018-10-07] MEDS ORDERED: Ondansetron INJ* 2 MG/ML VIAL IV ONE (05:07)
[2018-10-07 05:43] VITALS: BP 167/75
== END 2018-10-07 06:04 | disposition home or self-care (01) ==
LOC: ED 03:26
DX: R55 Syncope and collapse (principal); I10 Essential (primary) hypertension; Z79.899 Other long term (current) drug therapy; Z88.0 Allergy status to penicillin
CPT/HCPCS: 36415; 70450; 71045; 80053; 83605; 84484; 85025; 85610; 85730; 93005; 96374; 99283; J2405